=== PATIENT | male | born 1970 | race Caucasian/White ===

== ENCOUNTER 2021-12-22 09:22 | Emergency (ER) | payer SELFPAY ==
[~2021-12-22] VITALS: Ht 165.1 cm; Wt 63.5 kg
[2021-12-22] MEDS ORDERED: METH4TAB3 PO (10:36)
[2021-12-22] MEDS ORDERED: NAPR-1009 PO (10:36)
[2021-12-22 11:02] VITALS: BP 139/78
--- NOTE | 2021-12-22 11:02 | NUR ---
PT WAS EVALUATED BY DR GOODMAN. PT WAS D/C'd TO HOME. D/C INSTRUCTIONS GIVEN TO THE PT BY DR GOODMAN.
== END 2021-12-22 11:03 | disposition home or self-care (01) ==
LOC: ER 09:22
DX: M54.10 Radiculopathy, site unspecified (principal); G62.9 Polyneuropathy, unspecified
CPT/HCPCS: 72125; 73030; A4663